=== PATIENT | male | born 1995 | race Caucasian/White ===

== ENCOUNTER 2021-05-03 10:55 | Emergency (ER) | payer OTHER ==
[~2021-05-03] VITALS: Ht 190.5 cm; Wt 90.7 kg
[2021-05-03 14:53] VITALS: BP 141/65
== END 2021-05-03 15:02 | disposition home or self-care (01) ==
LOC: M.ERS 10:55
DX: R09.89 Other specified symptoms and signs involving the circulatory and respiratory systems (principal)